=== PATIENT | female | born 1975 | race Caucasian/White ===

== ENCOUNTER 2018-02-08 10:12 | Emergency (ER) | payer MEDICARE, SELFPAY ==
[2018-02-08 10:14] VITALS: BP 147/91; PULSE 75; RESP 18; TEMP 36.2; O2SAT 100; BMI 27.2
[2018-02-08 10:58] LABS: Amphetamine Urine VISTA POSITIVE (<1000 ng/mL); Barbiturate Urine VISTA NEGATIVE (< 200 ng/mL); Benzodiazepine Urine VISTA NEGATIVE (< 200 ng/mL); Cocaine Urine VISTA NEGATIVE (< 300 ng/mL); Ecstacy Urine VISTA NEGATIVE (< 500 ng/mL); Methadone Urine VISTA NEGATIVE (< 300 ng/mL); PCP Urine VISTA NEGATIVE (< 25 ng/mL); THC Urine VISTA POSITIVE (< 50 ng/mL); Vista UDS pH Range 6
[2018-02-08 11:24] LABS: Absolute Lymphocyte Count 4.73 X10^3/ul (0.83-4.51); Absolute Neutrophil Count 4.5 X10^3/uL (2.0-7.7); Basophil# 0.03 X10^3/uL; Basophil% 0.3 % (0-1); Hematocrit 39.1 % (37-47); Hemoglobin 13.4 g/dl (12.0-15.0); Lymphocyte # 4.73 X10^3/ul (4.0); Lymphocyte % 46.2 % (19-41); Mean Corp Hgb Conc 34.3 g/gl (32-36); Mean Corpuscular Hgb 29.2 pg (27.0-32.0); Mean Corpuscular Volume 85.2 fL (81-99); Mean Platelet Vol. 10.8 fl (6.2-12.0); Monocyte# 0.78 X10^3/uL; Monocyte% 7.6 % (0-10); Neutrophil # 4.49 X10^3/uL (2.7-7.7); Neutrophil % 43.8 % (47-70); POSITIVE COUNT NO; POSITIVE DIFFERENTIAL NO; POSITIVE MORPHOLOGY NO; Platelet Count 297 K/mm3 (150-450); RBC Distribution Width CV 13.2 % (11.6-14.6); RBC Distribution Width SD 40.8 fl (35.1-43.9); Red Blood Count 4.59 M/mm3 (4.2-5.4); White Blood Count 10.2 K/mm3 (4.4-11.0)
[2018-02-08 11:34] LABS: Anion Gap 6 (5-15); BUN 15 mg/dL (7-18); BUN/Creat Ratio 19.3 RATIO (10-20); Calcium,Total 9.3 mg/dL (8.5-10.1); Chloride 102 mmol/L (98-107); Creatinine, Serum 0.78 mg/dL (0.55-1.02); EST Glomerular Filtration Rate 86 mL/min (>60); Est Glom Filt Rate - Afr Amer 104 mL/min (>60); Estimated Creatinine Clearance 81.13 ml/min; Glucose 84 mg/dL (74-106); Potassium 3.7 mmol/L (3.5-5.1); Sodium Level 137 mmol/L (136-145)
[2018-02-08 11:38] LABS: Pregnancy, Serum, hCG Quali. NEGATIVE Negative (0-9 Nonpreg)
--- NOTE | 2018-02-08 12:34 | ED.VISSUMM ---
- ER Visit Summary Date of Service: 02/08/18 Chief Complaint: Delusions History of Present Illness: The patient is a [address] Jeffrey and the counseling center. She reports that she has a history of being bipolar, but she has not needed medications for years. She reports that since October 31 she is felt like I am melting. Also admits that she feels paranoid. Finally she complains that there is fire and particles coming through the events in the heating system in her home. The patient denies any suicidal or homicidal ideation. Physical Examination: Vitals: Stable. Afebrile. General: Well-nourished and well-developed. Head: Normocephalic atraumatic. Neck: Supple, no lymphadenopathy. No JVD. Nontender. Cardiovascular: Regular rate and rhythm. No murmurs. Respiratory: No respiratory distress. Clear to auscultation bilaterally. Abdominal: Soft, nontender, nondistended, normal bowel sounds. No guarding, rebound, or peritoneal signs. Back: Nontender. Extremities: Nontender, no edema. Skin: Normal color, no rash. Neurologic: Alert and oriented ?3. Cranial nerves II through XII are intact. Normal strength and sensation. Psych: Clearly manic. Pressured speech and flight of ideas. Obvious delusions. Denies suicidal or homicidal ideation. Test Results: CBC is marked for segment neutrophils of 44 lymphocytes of 46. Chem-7 is normal. Tox screen shows amphetamines and marijuana. test is negative. Alcohol level is negative. Emergency Department Course and Treatment: Patient is resting comfortably throughout her stay in the emergency department and has been cooperative. Treatment Plan: The counseling center has been contacted to assess the patient. Disposition: [] Impression: 1. Acute heather. 2. Polysubstance abuse. This note was generated with [employer] dictation software. It may contain incorrect words, spelling, and punctuation that were not noted in review of the chart prior to signing ED Disposition - Plan for ED Patient: Chief Complaint: Mental Health Referrals: Mega Jeffrey MD [Primary Care Provider] -
[2018-02-08 12:56] VITALS: BP 152/68; PULSE 93; RESP 18; O2SAT 100
--- NOTE | 2018-02-08 13:47 | NURSING ---
[facility], CRISIS, HERE FOR PATIENT
[2018-02-08 14:56] VITALS: BP 116/85; PULSE 71; RESP 18; TEMP 36.6; O2SAT 97
--- NOTE | 2018-02-08 15:52 | NURSING ---
pt states meds had been stopped previously and had never restarted. Not a dependable historian at this time.
--- NOTE | 2018-02-08 16:56 | NURSING ---
ACCEPTED AT [place] [id number]
[2018-02-08] MEDS: Ziprasidone IM 20 MG/ML VIAL IM (17:09)
[2018-02-08 17:11] VITALS: BP 149/114; PULSE 72; RESP 16; O2SAT 98
[2018-02-08 17:32] VITALS: BP 149/114; PULSE 80; RESP 18; O2SAT 99
--- NOTE | 2018-02-08 17:35 | NURSING ---
CALLED [facility] ETA IS HALF HOUR
== END 2018-02-08 17:56 ==
PROVIDERS: Emergency Provider Emergency Medicine; Family Provider Family Medicine; PCP Family Medicine
DX: F31.9 Bipolar disorder, unspecified (principal); F19.10 Other psychoactive substance abuse, uncomplicated; Z72.0 Tobacco use
CPT/HCPCS: 36415; 80048; 80307; 80320; 84703; 85025; 96372; 99285; G0480; J3486

== ENCOUNTER 2018-02-17 16:46 | Emergency (ER) | payer MEDICARE, SELFPAY ==
[2018-02-17 16:49] VITALS: BP 128/87; PULSE 81; RESP 17; TEMP 36.7; O2SAT 97; BMI 26.3
--- NOTE | 2018-02-17 17:19 | ED.DCSUM_ITS ---
- ER Visit Summary Date of Service: 02/17/18 Chief Complaint: Wants help History of Present Illness: The patient is a 42 F presenting stating that she wants help. She was recently released from [facility] on Wednesday. She states she usually takes Vistaril but has not had this medication. She states this is only medication she can take. She recently left her . She denies suicidal or homicidal ideation. 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 She denies alcohol or drug use. Physical Examination: Vitals are stable. Patient is afebrile. Alert no acute distress. HEENT exam is unremarkable. Neck is supple. Lungs are clear and equal bilaterally. Heart is regular rate and rhythm. Abdomen is soft nontender nondistended. Extremities are unremarkable. Skin is warm and dry. No focal neurologic deficit. Pressured speech, paranoid thoughts. No suicidal or homicidal ideation Remainder of exam is unremarkable. Emergency Department Course and Treatment: Patient was given Vistaril, nicotine patch. CBC, chemistries unremarkable. HCG negative. Alcohol negative. Tox positive for amphetamine, methamphetamine, THC. Discussed with the counseling center for evaluation. Disposition: Per counseling center Impression: Anxiety, paranoid thoughts This note was generated with [employer] dictation software. It may contain incorrect words, spelling, and punctuation that were not noted in review of the chart prior to signing ED Disposition - Plan for ED Patient: Chief Complaint: Mental Health Referrals: Care Physician,No Primary [Primary Care Provider] -
[2018-02-17] MEDS: hydrOXYzine PAM 25 MG Capsule PO (17:39)
[2018-02-17 18:05] LABS: Absolute Neutrophil Count 3.9 X10^3/uL (2.0-7.7); Basophil# 0.07 X10^3/uL; Basophil% 0.7 % (0-1); Eosinophils% 1.1 % (0-5); Hematocrit 38.5 % (37-47); Lymphocyte % 46.7 % (19-41); Mean Corp Hgb Conc 33.8 g/gl (32-36); Mean Corpuscular Volume 85.9 fL (81-99); Mean Platelet Vol. 10.9 fl (6.2-12.0); Monocyte# 0.92 X10^3/uL; Monocyte% 9.8 % (0-10); Neutrophil # 3.93 X10^3/uL (2.7-7.7); Neutrophil % 41.6 % (47-70); Platelet Count 347 K/mm3 (150-450); RBC Distribution Width CV 13.2 % (11.6-14.6); RBC Distribution Width SD 41.8 fl (35.1-43.9); Red Blood Count 4.48 M/mm3 (4.2-5.4); White Blood Count 9.4 K/mm3 (4.4-11.0)
[2018-02-17 18:07] LABS: Differential Indicated SCAN CRITERIA MET; POSITIVE COUNT NO; POSITIVE DIFFERENTIAL NO; POSITIVE MORPHOLOGY YES
[2018-02-17 18:14] LABS: ALB/GLOB Ratio 1.2 RATIO (0.9-2.4); AST(SGOT) 18 U/L (15-37); Alanine Aminotransfer ALT/SGPT 20 U/L (13-56); Alkaline Phosphatase 65 U/L (45-117); Anion Gap 8 (5-15); BUN 24 mg/dL (7-18); BUN/Creat Ratio 27.7 RATIO (10-20); Calcium,Total 8.8 mg/dL (8.5-10.1); Chloride 105 mmol/L (98-107); Creatinine, Serum 0.86 mg/dL (0.55-1.02); EST Glomerular Filtration Rate 76 mL/min (>60); Est Glom Filt Rate - Afr Amer 92 mL/min (>60); Estimated Creatinine Clearance 73.59 ml/min; Globulin 3.2 g/dL (2.2-4.2); Glucose 82 mg/dL (74-106); Potassium 3.6 mmol/L (3.5-5.1); Protein, Total 7.2 g/dL (6.4-8.2); Sodium Level 139 mmol/L (136-145)
[2018-02-17 18:16] LABS: Pregnancy, Serum, hCG Quali. NEGATIVE Negative (0-9 Nonpreg)
[2018-02-17 18:24] LABS: Differential Comment SCANNED
[2018-02-17 18:33] LABS: Amphetamine Urine VISTA POSITIVE (<1000 ng/mL); Barbiturate Urine VISTA NEGATIVE (< 200 ng/mL); Benzodiazepine Urine VISTA NEGATIVE (< 200 ng/mL); Cocaine Urine VISTA NEGATIVE (< 300 ng/mL); Ecstacy Urine VISTA POSITIVE (< 500 ng/mL); Methadone Urine VISTA NEGATIVE (< 300 ng/mL); PCP Urine VISTA NEGATIVE (< 25 ng/mL); THC Urine VISTA POSITIVE (< 50 ng/mL); Vista UDS pH Range 5
[2018-02-17 19:10] VITALS: BP 132/70; PULSE 75; RESP 14; O2SAT 99
[2018-02-17 21:57] VITALS: BP 118/70; PULSE 80; RESP 14; O2SAT 99
[2018-02-17 23:02] VITALS: BP 114/75; PULSE 82; RESP 14; O2SAT 98
[2018-02-18 01:04] VITALS: RESP 14
[2018-02-18] MEDS: hydrOXYzine PAM 25 MG Capsule 50 MG PO (02:51)
[2018-02-18] MEDS: Ibuprofen 600 MG Tablet PO (02:52)
[2018-02-18 03:02] VITALS: BP 116/76; PULSE 78; RESP 14; TEMP 36.4; O2SAT 98
--- NOTE | 2018-02-18 04:38 | ED.RN ---
crisis called patient has been denied at [facility] at this time. Crisis working on further placement at this time
--- NOTE | 2018-02-18 05:32 | NURSING ---
ACCEPTED AT [facility] [address] LINO ACCEPTING [phone] REPORT
[2018-02-18 05:43] VITALS: RESP 16
--- NOTE | 2018-02-18 05:48 | NURSING ---
[facility] TO BE HERE AT 8AM FOR TRANSPORT
[2018-02-18 06:24] VITALS: BP 110/79; PULSE 73; RESP 16; TEMP 36.7; O2SAT 98
[2018-02-18 08:07] VITALS: BP 118/72; PULSE 69; RESP 15; O2SAT 97
== END 2018-02-18 08:10 ==
PROVIDERS: Emergency Provider Emergency Medicine
DX: F41.9 Anxiety disorder, unspecified (principal); F22 Delusional disorders; Z72.0 Tobacco use; Z79.899 Other long term (current) drug therapy
CPT/HCPCS: 80053; 80307; 80320; 84703; 85025; 99285; G0480